=== PATIENT | male | born 1945 | race Caucasian/White ===

== ENCOUNTER 2025-07-16 10:19 | Emergency (ER) | payer MEDICARE, OTHER ==
[~2025-07-16] VITALS: Ht 154.9 cm; Wt 88.5 kg
[~2025-07-16 10:19] MED LIST: ASPIRIN EC81 MG PO; BUMETANIDE1 MG PO; CENTRUM PO; CIPRO250 MG OD; CRESTOR10 MG PO; HYDROCODON-ACE1 EAC9 PO; LISINOPRIL5 MG PO; OSTEO BI-FLEX1 EAC2 PO; PANTOPRAZOLE SO20 MG PO; PREDNISONE5 MG PO; TACROLIMUS1 MG PO; Z.0.ZOCOR20 MG PO
[2025-07-16 10:45] VITALS: PULSE 80; RESP 18; TEMP 97.7
[2025-07-16] MEDS ORDERED: METHOCARBAMOL 750 MG TAB PO ONE (11:00)
[2025-07-16] MEDS: PREDNISONE 20 MG TAB PO ONE (11:19)
[2025-07-16] MEDS: TRAMADOL HCL 50 MG TAB PO ONE (11:19)
[2025-07-16] MEDS ORDERED: ULTRAM 50MG50 MG PO (12:50)
[2025-07-16] MEDS ORDERED: METHOCARBAMOL750 MG PO (12:50)
[2025-07-16 13:08] VITALS: BP 146/70; PULSE 74; RESP 18; TEMP 98; O2SAT 95
== END 2025-07-16 13:02 | disposition home or self-care (01) ==
LOC: FSED 10:31
DX: M54.9 Dorsalgia, unspecified (principal); M25.511 Pain in right shoulder; I10 Essential (primary) hypertension; E78.5 Hyperlipidemia, unspecified; N05.8 Unspecified nephritic syndrome with other morphologic changes; M19.90 Unspecified osteoarthritis, unspecified site
CPT/HCPCS: 73010; 93005; 99283; J7512

== ENCOUNTER 2025-09-15 09:55 | Emergency (ER) | payer MEDICARE, OTHER ==
[~2025-09-15] VITALS: Ht 180.3 cm; Wt 89.8 kg
[~2025-09-15 09:55] MED LIST changes: +METHOCARBAMOL750 MG PO; +ULTRAM 50MG50 MG PO
[2025-09-15] MEDS ORDERED: CARAFATE1 GM/10 ML PO (10:20)
[2025-09-15] MEDS: ACETAMINOPHEN 325 MG TAB PO ONE (10:35)
[2025-09-15 11:31] VITALS: PULSE 82; RESP 16; TEMP 97.9; O2SAT 98
== END 2025-09-15 11:31 | disposition home or self-care (01) ==
LOC: FSED 10:00
DX: M54.12 Radiculopathy, cervical region (principal); M25.511 Pain in right shoulder; N05.2 Unspecified nephritic syndrome with diffuse membranous glomerulonephritis; I10 Essential (primary) hypertension; E78.5 Hyperlipidemia, unspecified; K21.9 Gastro-esophageal reflux disease without esophagitis
CPT/HCPCS: 71046; 99283